=== PATIENT | female | born 1995 | race African-American/Black ===

== ENCOUNTER → 2016-07-19 | Outpatient (CLI) | payer BC, OTHER, MEDICAID | END | disposition home or self-care (01) | LOC: CECH 13:32 | DX: R07.9 Chest pain, unspecified (principal); I36.1 Nonrheumatic tricuspid (valve) insufficiency | CPT/HCPCS: 93306 ==

== ENCOUNTER → 2016-08-02 | Outpatient (CLI) | payer BC, OTHER ==
--- NOTE | ~2016-08-02 | PFT ---
[id number] [facility]. [place], [place] [address] [id number] O MR#: [id number] NAME: ANAYA ESPARZA ROOM: SEX: F STUDY DATE/TIME: 08/07/2016 : 1995 AGE: 21 STUDY DESCRIPTION: Attending Physician: Flaca Paris M.D. Referring Physician: Flaca Paris M.D. Primary Care Physician: Flaca Paris M.D. PULMONARY DIAGNOSTIC REPORT EXAM Pulmonary function test FINDINGS Spirometry suggests a mild restrictive defect. There is a significant response to bronchodilators of 12% yielding an FEV1 of 1.95 L, 74% of predicted. Flow-volume loop is most consistent with a restrictive defect. Lung volumes confirm a restrictive defect with a total lung capacity of 68%. However, there is some airtrapping. Diffusion capacity is normal. There certainly is a restrictive defect with normal diffusion capacity. There appears to be possible airways disease with a positive response to bronchodilators and airtrapping although no definite obstructive defect identified by spirometry. Clinical correlation is needed for this complex PFT. Dictated by... Alek Ross M.D. WOL/cf TD: 08/07/2016 23:07 JOB #: [id number] PULMONARY DIAGNOSTIC REPORT Page 1 of 1
== END | disposition home or self-care (01) ==
LOC: CRC 13:00
DX: J45.40 Moderate persistent asthma, uncomplicated (principal)
CPT/HCPCS: 94060; 94726; 94729